=== PATIENT | male | born 1940 | race Caucasian/White ===

== ENCOUNTER 2017-10-19 10:47 | Day surgery (SDC) | payer MEDICARE, OTHER, SELFPAY ==
[2017-10-19] MEDS: SODIUM CHLORIDE 0.9% 1,000 ML 200 ML IV (12:57)
[2017-10-19 12:58] VITALS: BP 162/82; PULSE 59; RESP 16; TEMP 36.3; O2SAT 99; BMI 19.8
--- NOTE | 2017-10-19 13:59 | PM.HP.1 ---
History of Present Illness Date Patient Seen: 10/19/17 Time Patient Seen: 14:00 Chief complaint: colonoscopy [id number] Narrative: [age] year old male with history of prostate cancer status post radiation therapy June 2016 who presented recently to his primary physician with rectal bleeding. No pain. Bowel function is otherwise been normal. No diarrhea or constipation. Denies any nausea or vomiting. Last colonoscopy was 2004 which she reports was normal at that time. Patient History Medical History Coronary artery disease (Acute) Hyperlipidemia (Acute) Myocardial infarction (Acute) Prostate cancer (Acute) Surgical History History of colonoscopy (Acute) History of coronary artery stent placement (Acute) History of cranioplasty (Acute) History of vasectomy Status post knee surgery Family & Social History Family History: Reviewed 10/19/17 by Fady Mcfarlane MD Social History: household members spouse Meds Home Medications Medication Instructions Recorded Confirmed Type [SAW PALMETTO] Q DAY #0 11/27/15 History aspirin 81 mg PO QDAY #30 tab 11/27/15 History [lycopene] #0 05/06/16 History calcium carbonate [Calcium Antacid] 1 tab PO #0 05/06/16 History cholecalciferol (vitamin D3) 1 tab PO QDAY #0 12/20/16 History [Vitamin D3] tamsulosin [Flomax] 0.4 mg PO QDAY #0 12/20/16 History atorvastatin [Lipitor] #0 01/06/17 History Allergies Allergy/AdvReac Type Severity Reaction Status Date / Time grass pollen [GRASS POLLEN] Allergy Mild RUNNY Unverified 05/31/17 12:38 NOSE, WATERY EYES Penicillins [PENICILLINS] Allergy Mild rash Unverified 05/31/17 12:38 DUST MITES Allergy Mild RUNNY Uncoded 05/31/17 12:38 NOSE, WATERY EYES Review of Systems Review of Systems All systems reviewed & are unremarkable except as noted in HPI and below Exam Vital Signs (past 8 hours): - 10/19/17 12:58 Temperature 97.4 F L Pulse Rate 59 L Respiratory Rate 16 Blood Pressure 162/82 H Pulse Oximetry 99 Oxygen Delivery Method Room Air Narrative Exam Narrative: Thin male in no acute distress lying comfortably in bed. Alert oriented x3 Sclera nonicteric Regular rate and rhythm Abdomen soft, nondistended, nontender, no masses Extremities show no clubbing, cyanosis, or edema Objective Labs Labs: No recent laboratory radiographic studies for review Assessment & Plan Plan: Assessment/Plan Narrative: 77-year-old male with recent rectal bleeding. It has been 12-13 years since his last colonoscopy. Certainly the possibility of colorectal neoplasia exist. 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 I have recommended colonoscopy. Technical details of the procedure were discussed. Risks, benefits, alternatives were explained. Risks including but not limited to sedation, aspiration, bleeding, pain, missed lesion, incomplete examination, need for further radiographic studies, colonic perforation, need for major abdominal surgery, and all attendant risks of major surgery were explained in detail. All questions were answered to his satisfaction, and he voiced understanding. Consent was placed on the chart. We will proceed as above.
--- NOTE | 2017-10-19 14:04 | PM.PREOP ---
Pre-operative Note Interval Note Pre-op Check: Yes History & Physical Reviewed by Physician, Yes Exam Performed and Yes History & Physical exam performed today by Physician Changes: No H&P completed within 30 days and has changed as indicated here:: Patient seen and examined today. History physical examination placed on the chart. Will proceed with colonoscopy today as planned for rectal bleeding. ASA Class (for procedural sedation): II
[2017-10-19] MEDS: ONDANSETRON 4 MG/2 ML INJ IV (14:09)
[2017-10-19] MEDS: fentaNYL 250 MCG/5 ML INJ IV (14:31)
[2017-10-19] MEDS: MIDAZOLAM 5 MG/5 ML VIAL IV (14:31)
--- NOTE | 2017-10-19 14:31 | PM.OP.ENDO ---
Operative Date/Time/Diagnoses Date of procedure: 10/19/17 Time of procedure: 14:31 Pre-op diagnosis: Rectal bleeding Post-op diagnosis: other (Radiation proctitis but otherwise normal colon and rectum) Procedure & Clinicians Study performed: 1. Sedation per surgeon 2. Colonoscopy Same procedure as scheduled: Yes Indications: 77-year-old male status post radiation therapy for prostate cancer who recently presented with rectal bleeding. It has also been 13 years since his last colonoscopy. Colonoscopy is recommended currently given the above symptoms and need for colorectal surveillance. Surgeon: Fady Mcfarlane Procedure Notes SCOAP/Timeout: Yes Procedure in detail: After obtaining informed consent, the patient was brought to the GI suite and placed in the left lateral decubitus position on the examination table. After placement of appropriate monitors, the patient was given incremental doses of Versed and Fentanyl until an appropriate level of sedation was achieved. A time out was held per SCOAP protocol. A digital rectal examination was performed and did not reveal any masses or obstructing lesions. The colonoscope was gently passed into the patient's anus and the entire colon navigated to the level of the cecum with minimal difficulty. Terminal ileum was intubated and noted to be grossly normal. Once in the cecum, the scope was withdrawn being sure to go before and beyond all mucosal folds and prominences and get an excellent examination. The findings are noted above. At the level of the rectal vault, the scope was retroflexed and the internal anal canal was examined. The scope was straightened and air aspirated from the colon. The instrument was removed from the patient's body and the procedure was concluded. The patient was allowed to awaken from sedation without difficulty and taken to the post-anesthesia care unit in good condition. Scope withdrawal time: 7:55 min Sedation minutes: 25 Findings: other findings (Proctitis likely secondary to radiation therapy) Specimen(s): none sent Complications: none Recommendations: Other recommendation (No further colonoscopy required) Plan for aftercare: 1. Discharged home 2. Conservative management of radiation proctitis. Could consider Proctofoam or similar product if symptoms become severe. Follow up: as needed Disposition: PACU
[2017-10-19 14:34] VITALS: BP 128/80; PULSE 60; RESP 14; TEMP 36.1; O2SAT 95
[2017-10-19 14:39] VITALS: BP 122/78; PULSE 55; RESP 11; O2SAT 95
[2017-10-19 14:44] VITALS: BP 120/76; PULSE 57; RESP 10; O2SAT 95
[2017-10-19 14:50] VITALS: BP 134/83; PULSE 59; RESP 16; TEMP 36.9; O2SAT 97
[2017-10-19 14:58] VITALS: BP 142/78; PULSE 54; RESP 15; TEMP 36.4; O2SAT 99
== END 2017-10-19 15:13 | disposition home or self-care (01) ==
PROVIDERS: PCP Family Medicine; Visit Provider Surgery
PROC: 0DJD8ZZ Inspection of Lower Intestinal Tract, Via Natural or Artificial Opening Endoscopic (ICD-10-PCS; CPT 45378; principal; 2017-10-19 14:00)
DX: K62.7 Radiation proctitis (principal); Y63.3 Inadvertent exposure of patient to radiation during medical care; Z85.46 Personal history of malignant neoplasm of prostate
CPT/HCPCS: 45378; 99152; 99153; J2250; J2405; J3010

== ENCOUNTER → 2018-03-01 07:55 | Outpatient (CLI) | payer MEDICARE, OTHER, SELFPAY ==
[2018-03-01 09:29] LABS: Add Manual Diff / Slide Review NO; Basophils Percent Auto 1.2 % (0-2); Eosinophils Percent Auto 5.9 % (2-4); Hematocrit 37.2 % (41-53); Hemoglobin 13.1 g/dL (13.5-17.5); Lymphocytes Percent Auto 20.4 % (25-40); Mean Corpuscular HGB Conc 35.2 % (30-36); Mean Corpuscular Volume 93.6 fL (80-100); Monocytes Percent Auto 9.3 % (3-14); Neutrophils Absolute Auto 2200 /uL (1500-7000); Neutrophils Percent Auto 63.2 % (50-75); Platelet Count 209 X10^3/uL (150-400); Red Blood Cell Count 3.97 X10^6/uL (4.5-5.9); Red Cell Distribution Width 13.1 % (11.6-14.8); White Blood Cell Count 3.4 X10^3/uL (4.5-11.0)
[2018-03-01 09:44] LABS: Alanine Aminotransferase 27 IU/L (21-72); Albumin 4.3 g/dL (3.5-5.0); Albumin Globulin Ratio 1.5 (1.0-2.8); Alkaline Phosphatase 79 U/L (38-126); Aspartate Aminotransferase 23 IU/L (17-59); BUN Creatinine Ratio 28.8 (6-22); Bilirubin Total 0.6 mg/dL (0.2-1.3); Blood Urea Nitrogen 23 mg/dL (9-20); Calcium 9.4 mg/dL (8.4-10.2); Carbon Dioxide 29 mmol/L (22-32); Chloride 102 mmol/L (98-107); Estimated Glomerular Filt Rate > 60.0 mL/min (>60); Globulin 2.9 g/dL (1.7-4.1); Glucose 96 mg/dL (80-110); HEMOLYSIS < 15 (0-50); Potassium 4.3 mmol/L (3.4-5.1); Sodium 141 mmol/L (137-145); Total Protein 7.2 g/dL (6.3-8.2)
[2018-03-01 10:09] LABS: Prostate Specific Antigen < 0.064 ng/mL (0.10-4.00)
== END ==
PROVIDERS: Family Provider Family Medicine; PCP Family Medicine; Visit Provider Internal Medicine Hematology & Oncology
DX: C61 Malignant neoplasm of prostate (principal)
CPT/HCPCS: 36415; 80053; 84153; 85025

== ENCOUNTER → 2018-05-21 08:49 | Outpatient (CLI) | payer MEDICARE, OTHER, SELFPAY ==
[2018-05-21 10:58] LABS: Alanine Aminotransferase 29 IU/L (21-72); Albumin Globulin Ratio 1.7 (1.0-2.8); Alkaline Phosphatase 75 U/L (38-126); Aspartate Aminotransferase 23 IU/L (17-59); BUN Creatinine Ratio 37.1 (6-22); Bilirubin Total 0.4 mg/dL (0.2-1.3); Blood Urea Nitrogen 26 mg/dL (9-20); Calcium 9.3 mg/dL (8.4-10.2); Carbon Dioxide 27 mmol/L (22-32); Chloride 103 mmol/L (98-107); Estimated Glomerular Filt Rate > 60.0 mL/min (>60); Globulin 2.3 g/dL (1.7-4.1); Glucose 91 mg/dL (80-110); HEMOLYSIS < 15 (0-50); Potassium 4.2 mmol/L (3.4-5.1); Sodium 142 mmol/L (137-145); Total Protein 6.3 g/dL (6.3-8.2)
[2018-05-21 11:03] LABS: Add Manual Diff / Slide Review NO; Basophils Absolute Auto 0 /uL (0-100); Basophils Percent Auto 1.2 % (0-2); Eosinophils Absolute Auto 300 /uL (0-450); Eosinophils Percent Auto 8.1 % (2-4); Hematocrit 36.1 % (41-53); Hemoglobin 12.4 g/dL (13.5-17.5); Lymphocytes Absolute Auto 900 /uL (1100-4500); Mean Corpuscular HGB Conc 34.4 % (30-36); Mean Corpuscular Hemoglobin 32.4 PG (26-34); Mean Corpuscular Volume 94.2 fL (80-100); Monocytes Absolute Auto 300 /uL (0-900); Monocytes Percent Auto 9.2 % (3-14); Neutrophils Absolute Auto 1800 /uL (1500-7000); Neutrophils Percent Auto 54.5 % (50-75); Platelet Count 212 X10^3/uL (150-400); Red Blood Cell Count 3.83 X10^6/uL (4.5-5.9); Red Cell Distribution Width 13.2 % (11.6-14.8); White Blood Cell Count 3.3 X10^3/uL (4.5-11.0)
[2018-05-21 11:29] LABS: Testosterone 11.6 ng/dL (71.8-623)
[2018-05-21 11:30] LABS: Prostate Specific Antigen < 0.064 ng/mL (0.10-4.00)
== END ==
PROVIDERS: Internal Medicine Hematology & Oncology; Family Provider Family Medicine; PCP Family Medicine; Visit Provider Family Medicine
DX: C61 Malignant neoplasm of prostate (principal)
CPT/HCPCS: 36415; 80053; 84153; 84403; 85025

== ENCOUNTER → 2018-12-05 11:30 | Oncology outpatient (ONC) | payer MEDICARE, OTHER, SELFPAY ==
[2018-02-15 16:06] VITALS: BP 146/75; PULSE 70; RESP 18; TEMP 36.6; O2SAT 98
--- NOTE | 2018-02-15 16:10 | ONC.PN ---
PN -Subjective Interval history: Thad Couch is a 77 year old male. He presents here today for follow-up of his known prostate cancer. He is accompanied by his to the clinic. Patient used to be followed at [facility] by Dr. Almanzar. After Dr. Almanzar left the Clinic, patient decided to go to [facility] where he has been followed for the past [address] Bernal. However because of the difficulty of the traffic, patient decided to come back and continue his care at [facility]. In November of 2015 patient was found to have an abnormal prostate on examination. At that time, patient's PSA was 35. Biopsy reviewed multiple cores of [place] 7 prostate adenocarcinoma. Bone scan was negative for metastasis. CT scan showed right-sided pelvic adenopathy. On 01/21/2016 patient was started on androgen deprivation therapy first with Firmagon and then on 02/24/2016 patient was switched to Lupron. From 06/07/2016 through 08/09/2016 patient underwent external beam radiotherapy to the prostate adenocarcinoma. There after patient has been on androgen deprivation therapy. The most recent androgen deprivation therapy was on 11/20/2017. And his PSA level was 0.01. Clinically, patient's main complaint has been the rectal bleeding since after the radiotherapy to the prostate. Patient said that the bleeding happened after patient had a hard stool. And he was also experiencing and no rectal pain when he is constipated. Otherwise patient said he does not have any pain if there is no constipation. Patient has had colonoscopy recently and he said the colonoscopy was without abnormal findings. In addition, patient said that ever since after the radiotherapy, patient has noticed bilateral lower extremity mild edema especially on the right side. He admitted that he had injury on the right side in the past. No chest pain. No shortness of breath. He denies any new bone pain. He denies any problems with urination. However he admitted that he is using Flomax. He had two stents in the heart. - Additional ROS All systems PM: reviewed and no additional remarkable complaints except as stated Home Medications and Allergies Home Medications Medication Instructions Recorded Confirmed Type [SAW PALMETTO] Q DAY #0 11/27/15 History aspirin 81 mg PO QDAY #30 tab 11/27/15 History [lycopene] #0 05/06/16 History calcium carbonate [Calcium Antacid] 1 tab PO #0 05/06/16 History cholecalciferol (vitamin D3) 1 tab PO QDAY #0 12/20/16 History [Vitamin D3] tamsulosin [Flomax] 0.4 mg PO QDAY #0 12/20/16 History atorvastatin [Lipitor] #0 01/06/17 History Allergies Allergy/AdvReac Type Severity Reaction Status Date / Time grass pollen [GRASS POLLEN] Allergy Mild RUNNY Unverified 05/31/17 12:38 NOSE, WATERY EYES Penicillins [PENICILLINS] Allergy Mild rash Unverified 05/31/17 12:38 DUST MITES Allergy Mild RUNNY Uncoded 05/31/17 12:38 NOSE, WATERY EYES Exam Vital signs: Last Vital Signs Temp 97.9 F 02/15/18 16:06 Pulse 70 02/15/18 16:06 Resp 18 02/15/18 16:06 BP 146/75 H 02/15/18 16:06 Pulse Ox 98 02/15/18 16:06 ECOG 1 Narrative: Constitutional: WDWN, NAD, average body habitus, well groomed, pleasant and cooperative, accompanied by his . HEENT: NCAT, EOMI, PERRLA, anicteric sclera, no hearing difficulty; oral mucus membrane moist and without ulcers. Neck: Supple, symmetrical, and tracheal midline; No palpable thyromegaly and no palpable lymph nodes. Respiratory: No use of accessory muscles. Clear to auscultation, and no wheezes or rales or rubs. Cardiovascular: Regular rate and rhythm, S1 and S2 normal, no murmurs gallops or rubs. No JVD. Abdomen: Soft, nontender, non-distended, bowel sounds normal, no palpable organomegaly, no hernia, no palpable masses. Lower extremities: very minimal edema bilaterally, more on the right side. Lymphatic: no palpable lymph nodes in the neck, axillae Musculoskeletal: normal gait and station, no clubbing, no cyanosis Skin: no rashes, no ulcers, no petechiae Neurological: Awake and alert and oriented x3. CN II-XII grossly intact. No focal motor or sensory deficit. Psychiatric: Good judgment, good insight, normal affect, normal thought process, cooperative, no depression, no anxiety. Results - Labs Pending. Assessment and Plan (1) Prostate cancer Problem details: In Nov 2015, abnormal prostate on examination and PSA of 35. Biopsy showed multiple cores of [place] 7 prostate adenocarcinoma. Bone scan negative for metastasis. CT scan showed right-sided pelvic adenopathy. On 01/21/2016, ADT started (first with degarelix and then on 02/24/2016 switched to Lupron). From 06/07/2016 through 08/09/2016 patient underwent external beam radiotherapy to the prostate adenocarcinoma. Assessment: I talked with the patient that clinically I do not think there is any evidence of disease recurrence or metastasis. I highly recommend that we continue androgen deprivation therapy for at least 3 years. Plan: 1. Lupron 22.5 mg im every 3 months, next due 03/11/2018, repeat CBC, CMP, PSA and testosterone. 2. RTC in 3 months. (2) Anal fissure Problem details: Severe pain and some bright red blood after a constipation is highly suggestive of possible anal fissure. This may be related to his previous radiation therapy. Assessment and Plan: I talked with the patient about my impression about the pain and blood when he was having difficulty defecating. I think it is consistent with anal fissure. I recommend that he be evaluated by a surgeon for possible repair. Patient said that they are going to find out a surgeon in [place].
--- NOTE | 2018-02-15 16:24 | P.PNONC_ITS ---
PN -Subjective Interval history: Thad Couch is a 77 year old male. He presents here today for follow- up of his known prostate cancer. He is accompanied by his to the clinic. Patient used to be followed at [facility] by Dr. Almanzar. After Dr. Almanzar left the Clinic, patient decided to go to [facility] where he has been followed for the past [address] Bernal. However because of the difficulty of the traffic, patient decided to come back and continue his care at [facility]. In November of 2015 patient was found to have an abnormal prostate on examination. At that time, patient's PSA was 35. Biopsy reviewed multiple cores of [place] 7 prostate adenocarcinoma. Bone scan was negative for metastasis. CT scan showed right-sided pelvic adenopathy. On 01/21/2016 patient was started on androgen deprivation therapy first with Firmagon and then on 02/24/2016 patient was switched to Lupron. From 06/07/2016 through 08/09/2016 patient underwent external beam radiotherapy to the prostate adenocarcinoma. There after patient has been on androgen deprivation therapy. The most recent androgen deprivation therapy was on 11/20/2017. And his PSA level was 0.01. Clinically, patient's main complaint has been the rectal bleeding since after the radiotherapy to the prostate. Patient said that the bleeding happened after patient had a hard stool. And he was also experiencing and no rectal pain when he is constipated. Otherwise patient said he does not have any pain if there is no constipation. Patient has had colonoscopy recently and he said the colonoscopy was without abnormal findings. In addition, patient said that ever since after the radiotherapy, patient has noticed bilateral lower extremity mild edema especially on the right side. He admitted that he had injury on the right side in the past. No chest pain. No shortness of breath. He denies any new bone pain. He denies any problems with urination. However he admitted that he is using Flomax. He had two stents in the heart. - Additional ROS All systems PM: reviewed and no additional remarkable complaints except as stated Home Medications and Allergies Home Medications Medication Instructions Recorded Confirmed Type [SAW PALMETTO] Q DAY #0 11/27/15 History aspirin 81 mg PO QDAY #30 tab 11/27/15 History [lycopene] #0 05/06/16 History calcium carbonate [Calcium Antacid] 1 tab PO #0 05/06/16 History cholecalciferol (vitamin D3) 1 tab PO QDAY #0 12/20/16 History [Vitamin D3] tamsulosin [Flomax] 0.4 mg PO QDAY #0 12/20/16 History atorvastatin [Lipitor] #0 01/06/17 History Allergies Allergy/AdvReac Type Severity Reaction Status Date / Time grass pollen [GRASS POLLEN] Allergy Mild RUNNY Unverified 05/31/17 12:38 NOSE, WATERY EYES Penicillins [PENICILLINS] Allergy Mild rash Unverified 05/31/17 12:38 DUST MITES Allergy Mild RUNNY Uncoded 05/31/17 12:38 NOSE, WATERY EYES Exam Vital signs: Last Vital Signs Temp 97.9 F 02/15/18 16:06 Pulse 70 02/15/18 16:06 Resp 18 02/15/18 16:06 BP 146/75 H 02/15/18 16:06 Pulse Ox 98 02/15/18 16:06 ECOG 1 Narrative: Constitutional: WDWN, NAD, average body habitus, well groomed, pleasant and cooperative, accompanied by his . HEENT: NCAT, EOMI, PERRLA, anicteric sclera, no hearing difficulty; oral mucus membrane moist and without ulcers. Neck: Supple, symmetrical, and tracheal midline; No palpable thyromegaly and no palpable lymph nodes. Respiratory: No use of accessory muscles. Clear to auscultation, and no wheezes or rales or rubs. Cardiovascular: Regular rate and rhythm, S1 and S2 normal, no murmurs gallops or rubs. No JVD. Abdomen: Soft, nontender, non-distended, bowel sounds normal, no palpable organomegaly, no hernia, no palpable masses. Lower extremities: very minimal edema bilaterally, more on the right side. Lymphatic: no palpable lymph nodes in the neck, axillae Musculoskeletal: normal gait and station, no clubbing, no cyanosis Skin: no rashes, no ulcers, no petechiae Neurological: Awake and alert and oriented x3. CN II-XII grossly intact. No focal motor or sensory deficit. Psychiatric: Good judgment, good insight, normal affect, normal thought process , cooperative, no depression, no anxiety. Results - Labs Pending. Assessment and Plan (1) Prostate cancer Problem details: In Nov 2015, abnormal prostate on examination and PSA of 35. Biopsy showed multiple cores of [place] 7 prostate adenocarcinoma. Bone scan negative for metastasis. CT scan showed right-sided pelvic adenopathy. On 01/21/2016, ADT started (first with degarelix and then on 02/24/2016 switched to Lupron). From through 08/09/2016 patient underwent external beam radiotherapy to the prostate adenocarcinoma. Assessment: I talked with the patient that clinically I do not think there is any evidence of disease recurrence or metastasis. I highly recommend that we continue androgen deprivation therapy for at least 3 years. Plan: 1. Lupron 22.5 mg im every 3 months, next due 03/11/2018, repeat CBC, CMP, PSA and testosterone. 2. RTC in 3 months. (2) Anal fissure Problem details: Severe pain and some bright red blood after a constipation is highly suggestive of possible anal fissure. This may be related to his previous radiation therapy. Assessment and Plan: I talked with the patient about my impression about the pain and blood when he was having difficulty defecating. I think it is consistent with anal fissure. I recommend that he be evaluated by a surgeon for possible repair. Patient said that they are going to find out a surgeon in [place].
[2018-03-01 09:31] VITALS: BP 140/81; PULSE 57; RESP 16; TEMP 36.5; O2SAT 95
[2018-03-01] MEDS: LEUPROLIDE DEPOT [ELIGARD] 22.5 MG SYR SUBCUT (09:44)
[2018-05-31 16:31] VITALS: BP 146/90; PULSE 61; RESP 17; TEMP 36.6; O2SAT 98
[2018-05-31] MEDS: LEUPROLIDE DEPOT [ELIGARD] 22.5 MG SYR SUBCUT (16:33)
--- NOTE | 2018-05-31 16:55 | P.PNONC_ITS ---
PN -Subjective Interval history: Thad Couch is a 77 year old male. He presents here today for follow- up of his known prostate cancer. He is accompanied by his to the clinic. Patient used to be followed at [facility] by Dr. Almanzar. After Dr. Almanzar left the Clinic, patient decided to go to [facility] where he has been followed for the past [address] Bernal. However because of the difficulty of the traffic, patient decided to come back and continue his care at [facility]. In November of 2015 patient was found to have an abnormal prostate on examination. At that time, patient's PSA was 35. Biopsy reviewed multiple cores of [place] 7 prostate adenocarcinoma. Bone scan was neg ative for metastasis. CT scan showed right-sided pelvic adenopathy. On 01/21/2016 patient was started on androgen deprivation therapy first with Firmagon and then on 02/24/2016 patient was switched to Lupron. From 06/07/2016 through 08/09/2016 patient underwent external beam radiotherapy to the prostate adenocarcinoma. There after patient has been on androgen deprivation therapy. The most recent androgen deprivation therapy was on 11/20/2017. And his PSA level was 0.01. Clinically, patient's main complaint has been the rectal bleeding since after the radiotherapy to the prostate. Today, he said that these is still the main complaint. Otherwise he has been doing well and denies any new musculoskeletal pain. he also denies any frequent urination especially after the Flomax was discontinued. - Patient Self-Reported Symptoms SR ears, nose, mouth, throat issues: Congestion SR respiratory issues: Mucous SR Skin issues: Dry skin SR Gastrointestinal issues: Heartburn SR Musculoskeletal issues: Joint pain or swelling, Cold hands or feet SR Hematologic issues: Bleeding/bruising SR Endocrine issues: Hot flashes - Additional ROS All systems PM: reviewed and no additional remarkable complaints except as stated Home Medications and Allergies Home Medications Medication Instructions Recorded Confirmed Type [SAW PALMETTO] Q DAY #0 11/27/15 History aspirin 81 mg PO QDAY #30 tab 11/27/15 History [lycopene] #0 05/06/16 History calcium carbonate [Calcium Antacid] 1 tab PO #0 05/06/16 History cholecalciferol (vitamin D3) 1 tab PO QDAY #0 12/20/16 History [Vitamin D3] tamsulosin [Flomax] 0.4 mg PO QDAY #0 12/20/16 History atorvastatin [Lipitor] #0 01/06/17 History Allergies Allergy/AdvReac Type Severity Reaction Status Date / Time grass pollen [GRASS POLLEN] Allergy Mild RUNNY Unverified 05/31/17 12:38 NOSE, WATERY EYES Penicillins [PENICILLINS] Allergy Mild rash Unverified 05/31/17 12:38 DUST MITES Allergy Mild RUNNY Uncoded 05/31/17 12:38 NOSE, WATERY EYES Exam Vital signs: Vital Signs Temp Pulse Resp BP Pulse Ox 05/31/18 16:31 97.8 F 61 17 146/90 H 98 ECOG 1 Narrative: Constitutional: WDWN, NAD, average body habitus, well groomed, pleasant and cooperative HEENT: NCAT, EOMI, PERRLA, anicteric sclera; oral mucus membrane moist and without ulcers. Neck: Supple, symmetrical, and tracheal midline; No palpable thyromegaly and no palpable lymph nodes. Respiratory: No use of accessory muscles. Clear to auscultation, and no wheezes. Cardiovascular: Regular rate and rhythm, S1 and S2 normal, no murmurs gallops or rubs. Abdomen: Soft, nontender, non-distended, bowel sounds normal, no palpable organomegaly, no hernia, no palpable masses. Lower extremities: very minimal edema bilaterally, more on the right side. Lymphatic: no palpable lymph nodes in the neck, axillae Musculoskeletal: normal gait and station, no clubbing, no cyanosis Skin: no rashes, no ulcers, no petechiae Neurological: Awake and alert and oriented x3. CN II-XII grossly intact. No focal motor or sensory deficit. Psychiatric: Good judgment, good insight, normal affect, normal thought process, cooperative, no depression, no anxiety Results - Labs Reviewed Assessment and Plan (1) Prostate cancer Assessment: In Nov 2015, abnormal prostate on examination and PSA of 35. Biopsy showed multiple cores of [place] 7 prostate adenocarcinoma. Bone scan negative for metastasis. CT scan showed right-sided pelvic adenopathy. On 01/21/2016, ADT started (first with degarelix and then on 02/24/2016 switched to Lupron). From 06/07/2016 through 08/09/2016 patient underwent external beam radiotherapy to the prostate adenocarcinoma. I highly recommend that we continue androgen deprivation therapy for at least 3 years. Plan: 1. Lupron 22.5 mg im every 3 months, next due 06/07 2. RTC in 3 months (08/16/2018), Lupron, CBC, CMP, PSA and testosterone. (2) Anal fissure Assessment and Plan: I have talked with the patient about my impression about the pain and blood when he was having difficulty defecating. I think it is consistent with anal fissure. I recommend that he be evaluated by a surgeon for possible repair. Patient said that they are going to find out a surgeon in [place].
[2018-08-30 09:11] LABS: Add Manual Diff / Slide Review NO; Basophils Absolute Auto 0 /uL (0-100); Eosinophils Absolute Auto 200 /uL (0-450); Eosinophils Percent Auto 5.7 % (2-4); Hematocrit 36.5 % (41-53); Hemoglobin 12.5 g/dL (13.5-17.5); Lymphocytes Absolute Auto 800 /uL (1100-4500); Lymphocytes Percent Auto 25.5 % (25-40); Mean Corpuscular HGB Conc 34.3 % (30-36); Mean Corpuscular Volume 96.3 fL (80-100); Monocytes Absolute Auto 300 /uL (0-900); Monocytes Percent Auto 9.1 % (3-14); Neutrophils Absolute Auto 1800 /uL (1500-7000); Neutrophils Percent Auto 58.7 % (50-75); Platelet Count 187 X10^3/uL (150-400); Red Blood Cell Count 3.79 X10^6/uL (4.5-5.9); Red Cell Distribution Width 13.3 % (11.6-14.8)
[2018-08-30 09:23] LABS: Alanine Aminotransferase 19 IU/L (21-72); Albumin 4.4 g/dL (3.5-5.0); Albumin Globulin Ratio 1.6 (1.0-2.8); Alkaline Phosphatase 80 U/L (38-126); Aspartate Aminotransferase 26 IU/L (17-59); BUN Creatinine Ratio 36.3 (6-22); Bilirubin Total 0.4 mg/dL (0.2-1.3); Blood Urea Nitrogen 29 mg/dL (9-20); Calcium 9.4 mg/dL (8.4-10.2); Carbon Dioxide 25 mmol/L (22-32); Chloride 106 mmol/L (98-107); Estimated Glomerular Filt Rate > 60.0 mL/min (>60); Globulin 2.7 g/dL (1.7-4.1); Glucose 97 mg/dL (80-110); HEMOLYSIS 16 (0-50); Potassium 4.6 mmol/L (3.4-5.1); Sodium 140 mmol/L (137-145); Total Protein 7.1 g/dL (6.3-8.2)
[2018-08-30 09:56] LABS: Testosterone 15.5 ng/dL (71.8-623)
[2018-08-30 10:51] VITALS: BP 144/77; PULSE 49; RESP 16; TEMP 36.5; O2SAT 97
[2018-08-30] MEDS: LEUPROLIDE DEPOT [ELIGARD] 22.5 MG SYR SUBCUT (11:12)
[2018-12-05 11:48] LABS: Add Manual Diff / Slide Review NO; Basophils Absolute Auto 0 /uL (0-100); Basophils Percent Auto 1.2 % (0-2); Eosinophils Absolute Auto 200 /uL (0-450); Eosinophils Percent Auto 5.1 % (2-4); Hemoglobin 12.7 g/dL (13.5-17.5); Lymphocytes Absolute Auto 900 /uL (1100-4500); Mean Corpuscular HGB Conc 34.2 % (30-36); Mean Corpuscular Hemoglobin 32.6 PG (26-34); Mean Corpuscular Volume 95.1 fL (80-100); Monocytes Absolute Auto 300 /uL (0-900); Monocytes Percent Auto 8.9 % (3-14); Neutrophils Absolute Auto 2300 /uL (1500-7000); Neutrophils Percent Auto 60.8 % (50-75); Platelet Count 213 X10^3/uL (150-400); Red Blood Cell Count 3.89 X10^6/uL (4.5-5.9); Red Cell Distribution Width 13.3 % (11.6-14.8); White Blood Cell Count 3.8 X10^3/uL (4.5-11.0)
[2018-12-05 12:09] LABS: Alanine Aminotransferase 23 IU/L (21-72); Albumin 4.3 g/dL (3.5-5.0); Albumin Globulin Ratio 1.7 (1.0-2.8); Alkaline Phosphatase 85 U/L (38-126); Aspartate Aminotransferase 28 IU/L (17-59); BUN Creatinine Ratio 28.8 (6-22); Bilirubin Total 0.4 mg/dL (0.2-1.3); Blood Urea Nitrogen 23 mg/dL (9-20); Calcium 9.4 mg/dL (8.4-10.2); Carbon Dioxide 29 mmol/L (22-32); Chloride 102 mmol/L (98-107); Estimated Glomerular Filt Rate > 60.0 mL/min (>60); Globulin 2.5 g/dL (1.7-4.1); Glucose 101 mg/dL (80-110); Potassium 4.8 mmol/L (3.4-5.1); Sodium 138 mmol/L (137-145); Total Protein 6.8 g/dL (6.3-8.2)
[2018-12-05] MEDS: LEUPROLIDE DEPOT [ELIGARD] 22.5 MG SYR SUBCUT (12:33)
[2018-12-05 12:39] VITALS: BP 156/88; PULSE 62; RESP 15; TEMP 36.6; O2SAT 99
[2018-12-06 15:00] LABS: HEMOLYSIS < 15 (0-50); Testosterone 15.4 ng/dL (71.8-623)
--- NOTE | 2018-12-31 13:54 | PC.NURSE ---
REFERrAL NEEDED FOR LUPRON: Patient in [place] next 6 months. He called requesting a referral from Dr. Dillon for his Lupron to be done there with Dr. Shaun Castañeda (phone: [phone]) for the shots which are due in and May of 2019. Request made with this note to Dr. Dillon.
--- NOTE | 2019-01-04 14:14 | ONC.SCHED ---
Faxed referral for Lupron injection to Dr. Castañeda in [place].
== END ==
PROVIDERS: PCP Family Medicine; Visit Provider Internal Medicine Hematology & Oncology
DX: C61 Malignant neoplasm of prostate (principal)
CPT/HCPCS: 36415; 80053; 84153; 84403; 85025; 96372; 96401; 96402; 99214; J9217